=== PATIENT | female | born 1960 | race African-American/Black ===

== ENCOUNTER 2016-12-06 16:47 | Inpatient (IN) | payer OTHER ==
--- NOTE | ~2016-12-06 | CT2 ---
[facility] A Service of [facility] & [facility] RADIOLOGY TEXT RESULTS PATIENT: CRIS BRAVO LOCATION: [facility] 576-01 : [birth year] UNIT #: [id number] AGE: [address]: Lucio Villareal MD SEX: F ORDER DR: [id number] [facility] [address] [place], [place] [address] [id number] I MR#: [id number] #: [id number] NAME: CRIS BRAVO. : 1960 SEX: F STUDY DATE/TIME: 12/06/2016 17:16 UNIT: [facility] ROOM: 11934 STUDY DESCRIPTION: CT Abd and Pelv W Cont Attending Physician: Arianna Dacosta M.D. Ordering Physician: Lulu Guardado M.D. Primary Care Physician: Miranda Liao A.P.R.N. MEDICAL IMAGING REPORT This report is preliminary unless electronic signature is present EXAM CT of abdomen and pelvis with IV contrast. DATE OF EXAM 12/06/2016 HISTORY Abdomen pain for 1 month. Nausea, vomiting and diarrhea for 2 days. TECHNIQUE NOTE: This CT exam was performed with one or more of the following radiation dose reduction techniques: automatic exposure control, adjustment of mA and/or kV according to patient size, and iterative reconstruction. FINDINGS CT abdomen and pelvis was performed with IV contrast. CT ABDOMEN: Small hiatal hernia. The liver, spleen, pancreas, kidneys, and right adrenal gland are unremarkable. There is a 1.2 cm x 1.3 cm left adrenal nodule, stable compared to 03/19/2006, indicating a benign adrenal adenoma, given its long-term stability. There is borderline to mild dilatation of several small bowel loops in the mid and left abdomen measuring approximately 3 cm in diameter, which could be due to mild ileus. No transition point is identified to suggest obstruction. Cholecystectomy. Normal caliber abdominal aorta. No ascites. No adenopathy. CT PELVIS: No free fluid or inflammatory stranding. No bowel dilatation. Hysterectomy. Urinary bladder is normal. IMPRESSION 1. Borderline to mild dilatation of small bowel in the mid and left STS. [facility] A Service of [facility] & [facility] RADIOLOGY TEXT RESULTS PATIENT: CRIS BRAVO LOCATION: [facility] 576-01 : [birth year] UNIT #: [id number] AGE: [address]: Lucio Villareal MD SEX: F ORDER DR: abdomen could be localized ileus. No transition point is identified. The remainder of bowel caliber is normal. 2. Small hiatal hernia. 3. Stable left adrenal nodule compared to older CTs dating back to 03/19/2006, indicating a benign adenoma. 4. Hysterectomy and cholecystectomy. Dictated by... Aaron Singh M.D. THIS IS AN ELECTRONICALLY VERIFIED REPORT Aaron Singh M.D. at 12/06/2016 11:17 PM YARON/chi TD: 12/06/2016 21:54 JOB #: [id number] MEDICAL IMAGING REPORT Page 1 of 1 COPY
--- NOTE | ~2016-12-06 | HP ---
Unit #: [id number] #: [id number] Patient: CRIS BRAVO [id number] [address] [place], [place] [address] [id number] I MR#: [id number] NAME: CRIS BRAVO. ROOM: 83068 Age: 56 Sex: F Admission Date: 12/06/2016 : 1960 Attending Physician: Arianna Dacosta M.D. Primary Care Physician: Miranda Liao A.P.R.N. HISTORY AND PHYSICAL CHIEF COMPLAINT Upper abdominal pain. HISTORY OF PRESENT ILLNESS This pleasant 56-year-old female with chronic obstructive pulmonary disease, seizure disorder, hypertension, and multiple abdominal surgeries, is admitted for abdominal pain. The patient states she developed increasing abdominal pain over the past several months, much worse over the past 24 hours. This morning she awoke with abdominal distention, nausea, and vomiting. She did have some stool which did seem to alleviate some of her abdominal distention. She states that when she eats she notes upper abdominal distention and pain with at times nausea and vomiting. She has had a 35 pound weight loss over the past six months. She was seen by Dr. Ulloa and sent to this emergency department for further workup. A CT scan is suspicious for a localized ileus. On examination, patient does have generalized abdominal tenderness, though the abdomen is soft. She is noted to have upper abdominal distention where her discomfort is more localized. In the ER, she was given two doses of Dilaudid and Zofran. PAST MEDICAL HISTORY 1. Cardiac catheterization performed December 2015 showing normal coronary arteries and evidence of hypertensive cardiovascular disease and diastolic LV dysfunction. 2. Chronic obstructive pulmonary disease with ongoing tobacco use. 3. Hypertension. 4. Hyperlipidemia. 5. Seizure disorder. 6. Gastroesophageal reflux disease. 7. Chronic low back pain for which the patient is disabled. 8. Endometrial cancer requiring HAYES and BSO. 9. Anxiety and depression. 10. Multiple abdominal surgeries. 11. Cholecystectomy. 12. section. 13. Total abdominal hysterectomy and BSO. 14. Multiple EGDs and colonoscopies. 15. Appendectomy. 16. Ventral hernia repair and lysis of adhesions. ALLERGIES SULFA, CODEINE, AND CEFOXITIN. Unit #: [id number] #: [id number] Patient: CRIS BRAVO HOME MEDICATIONS 1. Keppra 500 mg b.i.d. 2. Naprosyn 220 mg b.i.d. p.r.n. 3. Multivitamin daily. 4. Lipitor 20 mg at bedtime. 5. Norvasc 5 mg q.a.m. 6. Neurontin 800 mg t.i.d. 7. Albuterol as needed. 8. Metoprolol 50 mg b.i.d. 9. Ativan 2 mg t.i.d. p.r.n. 10. Multivitamin daily. 11. Senna laxative. 12. Seroquel 400 mg at bedtime. 13. Omeprazole 20 mg b.i.d. 14. Flexeril 10 mg b.i.d. p.r.n. FAMILY HISTORY Coronary artery disease. SOCIAL HISTORY The patient lives with her boyfriend. She smokes about a half pack per day of tobacco and does not drink alcohol. REVIEW OF SYSTEMS Notable for weight loss, upper abdominal discomfort and distention with nausea and vomiting, hypertension, hyperlipidemia, seizures, acid reflux, chronic back pain, endometrial cancer, COPD, tobacco use, anxiety, depression, and above-mentioned surgeries. All other systems were reviewed and are negative. PHYSICAL EXAMINATION GENERAL: A pleasant 56-year-old female currently in no acute distress. VITAL SIGNS: Temperature 99.7, pulse 104, respirations 16, blood pressure 113/84, and O2 saturation is 97% on room air. HEENT: Eyes PERRLA. Extraocular muscles are intact. Pharynx is benign. Edentulous. NECK: Supple, without adenopathy or thyromegaly. CHEST: Clear. CARDIAC: Normal S1 and S2, without S3, S4, or murmur. ABDOMEN: Bowel sounds are hypoactive but present. Patient has generalized abdominal tenderness but more localized in the epigastric region where she is noted to be more distended. No rebound or guarding. No hepatosplenomegaly. She does have a ventral hernia. EXTREMITIES: Without clubbing, cyanosis, or edema. Pedal pulses are present. NEUROLOGIC: Patient is awake, alert, and oriented. Cranial nerves are intact. Equal strength throughout. DIAGNOSTIC STUDIES ADMISSION LABORATORY: Hematocrit is 37.6, white blood count is 15, and normal platelet count. SMA-12: Alkaline phosphatase 104. Urinalysis with trace leukocyte esterase. IMAGING: CT scan with borderline dilation of small bowel left and mid abdomen that may represent localized ileus. Small hiatal hernia. Stable left adrenal nodule. ASSESSMENT Unit #: [id number] #: [id number] Patient: CRIS BRAVO 1. Increasing upper abdominal pain and distention with nausea and vomiting. Although a focal ileus is noted on CT scan, I suspect symptoms are related to adhesions and possibly an early small bowel obstruction. 2. Seizure disorder. 3. Depression and anxiety. 4. Chronic obstructive pulmonary disease and ongoing tobacco use. 5. Chronic low back pain. 6. Negative cardiac catheterization in December 2015. 7. Gastroesophageal reflux disease. 8. Hypertension. 9. Multiple abdominal surgeries. Patient has required repair of ventral hernia with lysis of adhesions. 10. Weight loss secondary to above. PLANS 1. IV fluids and supportive treatment. 2. Change medications to an alternate route for now. 3. P.r.n. NG tube if patient allows. 4. SCDs for DVT prophylaxis. 5. Repeat labs in the morning. 6. Will ask [facility] to see in consultation. 1. Dictated by Elizabeth To/tk TD: 12/06/2016 21:51 JOB #: [id number] HISTORY AND PHYSICAL Page 1 of 1 X Arianna Dacosta MD HISTORY AND PHYSICAL
--- NOTE | ~2016-12-06 | CR4 ---
[facility] A Service of [facility] & [facility] RADIOLOGY TEXT RESULTS PATIENT: CRIS BRAVO LOCATION: [facility] 576-01 : [birth year] UNIT #: [id number] AGE: [address]: Lucio Villareal MD SEX: F ORDER DR: [id number] [facility] [address] [place], [place] [address] [id number] I MR#: [id number] Acc #: [id number] NAME: CRIS BRAVO. : 1960 SEX: F STUDY DATE/TIME: 12/07/2016 15:22 UNIT: [facility] ROOM: [facility] STUDY DESCRIPTION: CR Abdomen Flat Upright or Dec Attending Physician: Lucio Villareal M.D. Ordering Physician: Lucio Villareal M.D. Primary Care Physician: Miranda Liao A.P.R.N. MEDICAL IMAGING REPORT This report is preliminary unless electronic signature is present EXAM Flat and upright abdomen 12/07/2016 HISTORY NG tube placement. FINDINGS KUB is obtained. Nasoenteric tube is in place with the tip in the gastric antrum in good position. Gas pattern in the abdomen is unremarkable. CONCLUSION NG tube in appropriate position. Normal bowel gas. Dictated by... Solis Montero M.D. THIS IS AN ELECTRONICALLY VERIFIED REPORT Solis Montero M.D. at 12/08/2016 10:56 AM DESIREE/dann TD: 12/07/2016 18:44 JOB #: [id number] MEDICAL IMAGING REPORT Page 1 of 1 COPY
--- NOTE | ~2016-12-06 | CR269 ---
[facility] A Service of [facility] & [facility] RADIOLOGY TEXT RESULTS PATIENT: CRIS BRAVO LOCATION: [facility] 576-01 : [birth year] UNIT #: [id number] AGE: [address]: Lucio Villareal MD SEX: F ORDER DR: [id number] [facility] [address] [place], [place] [address] [id number] I MR#: [id number] Acc #: [id number] NAME: CRIS BRAVO. : 1960 SEX: F STUDY DATE/TIME: 12/08/2016 14:29 UNIT: [facility] ROOM: [facility] STUDY DESCRIPTION: CR Upper GI and SBFT Attending Physician: Lucio Villareal M.D. Ordering Physician: Herbert Ulloa Jr., M.D. Primary Care Physician: Miranda Liao A.P.R.N. MEDICAL IMAGING REPORT This report is preliminary unless electronic signature is present EXAM Upper GI with small bowel follow through. DATE OF EXAM 12/08/2016 HISTORY Abdominal pain for 1 month with nausea, vomiting and diarrhea. Mid-abdomen pain since 12/04/2016. CT scan of the abdomen and pelvis 12/06/2016, showed dilated small bowel possibly reflecting ileus. FINDINGS Preliminary radiograph of the abdomen demonstrates nonspecific bowel gas pattern with no evidence of bowel obstruction or free air. Nasogastric tube is coiled within the stomach with the tip in the mid gastric region. Surgical clips are seen in the upper abdomen. The patient's nasogastric tube was injected with 2 cups of thin liquid barium as per clinician request. Multiple sequential radiographs of the abdomen were obtained for a total of 2 hours. There was normal progress of barium through the small bowel. Small bowel was normal in course and caliber. No intrinsic or extrinsic mass lesions were seen involving the small bowel. The terminal ileum and the cecum were normal in appearance. 5 fluoroscopic spot film radiographs of the abdomen were obtained and 1.2 minutes of fluoroscopy time was utilized. IMPRESSION Normal upper GI series and small-bowel follow-through. Dictated by... Sha Whitney M.D. THIS IS AN ELECTRONICALLY VERIFIED REPORT [facility] A Service of [facility] & [facility] RADIOLOGY TEXT RESULTS PATIENT: CRIS BRAVO LOCATION: [facility] 576-01 : [birth year] UNIT #: [id number] AGE: [address]: Lucio Villareal MD SEX: F ORDER DR: Sha Whitney M.D. at 12/09/2016 1:13 PM IRAIS/chi TD: 12/08/2016 21:51 JOB #: [id number] MEDICAL IMAGING REPORT Page 1 of 1 COPY
[2016-12-06 15:34] LABS: BASOPHIL% 0.2 % (0-2.5); EOSINOPHIL# 0.1 X10e3 (0-0.7); EOSINOPHIL% 0.8 % (0.0-7.0); HEMATOCRIT 37.6 % (35.0-45.0); HEMOGLOBIN 12.6 gm/dL (12.0-16.0); LYMPHOCYTE# 1.9 X10e3 (1.0-3.5); LYMPHOCYTE% 12.4 % (17.0-45.0); MEAN CELL VOLUME 94.4 FL (83-96); MEAN CORPUSCULAR HEMOGLOBIN 31.7 PG (28-34); MEAN CORPUSCULAR HGB CONC 33.6 g/dL (30-36); MEAN PLATELET VOLUME 6.8 FL (6.5-11.5); MONOCYTE# 0.8 X10e3 (0-1.0); MONOCYTE% 5.1 % (3.0-12.0); NEUTROPHIL# 12.2 X10e3 (1.5-7.1); NEUTROPHIL% 81.5 % (40-75); PLATELET COUNT 345 X10e3 (140-420); RED BLOOD COUNT 3.98 X10e (3.90-5.30); RED CELL DISTRIBUTION WIDTH 14.2 % (11.0-15.5); WHITE BLOOD COUNT 14.9 X10e3 (4.0-10.5)
[2016-12-06 15:44] LABS: DIFF IND NO
[2016-12-06 15:58] LABS: ALBUMIN SERUM 4.2 g/dL (3.5-5.0); ALKALINE PHOSPHATASE 104 U/L (32-92); ALT (SGPT) 11 U/L (10-40); AST (SGOT) 16 U/L (10-42); BILIRUBIN,TOTAL 0.6 mg/dL (0.2-2.0); BLOOD UREA NITROGEN 9 mg/dL (9-23); BUN/CREATININE RATIO 12.85; CARBON DIOXIDE 27 mmol/L (22-31); CHLORIDE 102 mmol/L (100-111); CREATININE SERUM 0.7 mg/dL (0.6-1.4); GLOM FILT RATE Estimated 113.8 mL/min (>60); GLUCOSE FASTING 103 mg/dL (70-110); LIPASE 22 U/L (22-51); POTASSIUM 4.2 mmol/L (3.5-5.1); PROTEIN TOTAL SERUM 7.7 g/dL (6.0-8.3); SODIUM 138 mmol/L (135-145)
[2016-12-06 16:04] LABS: BILIRUBIN, DIRECT <0.1 mg/dL (0.0-0.2); BILIRUBIN,INDIRECT 0.5 mg/dL (0.0-0.9)
[2016-12-06 16:14] LABS: URINE SOURCE CLEAN CATCH
[2016-12-06 16:21] LABS: URINE APPEARANCE CLEAR; URINE BILIRUBIN NEG (NEG); URINE BLOOD TRACE (NEG); URINE COLOR YELLOW; URINE GLUCOSE NEG (NEG); URINE KETONE NEG (NEG); URINE LEUKOCYTE ESTERASE TRACE (NEG); URINE NITRATE NEG (NEG); URINE PROTEIN NEG (NEG); URINE SPECIFIC GRAVITY 1.012 (1.003-1.035); URINE UROBILINOGEN 0.2 MG/DL (NEG)
[2016-12-06 16:22] LABS: CULTURE INDICATED? NO; URINE BACTERIA AUWI NEG (NEGATIVE); URINE SQUAMOUS EPITHELIAL CELL OCC /[HPF]
[~2016-12-06 16:47] MED LIST: ALBUTEROL MININEB NEB; ALBUTEROL20 ml INH; AMLODIPINE BESY10 MG PO; AMLODIPINE BESYL5 MG PO; ASPERCREME76.5 GM; ASPERCREME76.5 GM TOP; ATIVAN2 M1 PO; BUTRANS1 EAC1 TD; CLARITIN10 M3 PO; CLOTRIMAZOLE; DEPAKOTE PO; DESYREL150 M1 PO; DESYREL300 MG PO; ENSURE PLUS237 ML PO; FLEXERIL PO; FLEXERIL10 MG PO; GUAIFENESIN LA600 M1 PO; HCTZ; KEPPRA500 M1 PO; LAMOTRIGINE25 M1 PO; LIPITOR20 MG PO; LOSARTAN POTASS50 MG PO; METOPROLOL TART25 MG PO; MULTI VITAMIN1 EACH PO; NAPROXEN SODIU220 M1 PO; NEURONTIN PO; NEURONTIN800 MG PO; NORVASC; OMEPRAZOLE20 M2 PO; PERCOCET 10/3251 TAB PO; PREDNISONE1 MG PO; PREMARIN PO; PRILOSEC20 M1 PO; PROPRANOLOL PO; REMERON15 MG PO; RISPERDAL2 MG PO; SENNA LAXATIVE8.6 M1 PO; SEROQUEL PO; SEROQUEL300 M1 PO; SERTRALINE HCL100 MG PO; THERA M PLUS1 UDTA1 PO; THERA-M CAPLET1 EAC1 PO; VOLTAREN 1% PO; WELLBUTRIN PO; ZOLOFT PO; ZOLOFT100 MG PO
[2016-12-07 12:26] LABS: BASOPHIL% 0.2 % (0-2.5); EOSINOPHIL# 0.2 X10e3 (0-0.7); HEMATOCRIT 35.1 % (35.0-45.0); HEMOGLOBIN 11.6 gm/dL (12.0-16.0); MEAN CELL VOLUME 94.7 FL (83-96); MEAN CORPUSCULAR HEMOGLOBIN 31.4 PG (28-34); MEAN CORPUSCULAR HGB CONC 33.1 g/dL (30-36); MONOCYTE# 0.5 X10e3 (0-1.0); MONOCYTE% 5.5 % (3.0-12.0); NEUTROPHIL# 6.3 X10e3 (1.5-7.1); NEUTROPHIL% 70.3 % (40-75); PLATELET COUNT 306 X10e3 (140-420); RED CELL DISTRIBUTION WIDTH 14.4 % (11.0-15.5)
[2016-12-07 12:31] LABS: DIFF IND NO
[2016-12-07 13:15] LABS: ALBUMIN SERUM 3.6 g/dL (3.5-5.0); BILIRUBIN,TOTAL 0.3 mg/dL (0.2-2.0); CALCIUM SERUM 8.2 mg/dL (8.4-10.2); CREATININE SERUM 0.5 mg/dL (0.6-1.4); GLOM FILT RATE Estimated 127.2 mL/min (>60); PROTEIN TOTAL SERUM 6.5 g/dL (6.0-8.3)
[2016-12-08 06:12] LABS: HEMATOCRIT 40.9 % (35.0-45.0); MEAN CELL VOLUME 93.7 FL (83-96); MEAN CORPUSCULAR HEMOGLOBIN 31.1 PG (28-34); MEAN CORPUSCULAR HGB CONC 33.1 g/dL (30-36); MEAN PLATELET VOLUME 7.4 FL (6.5-11.5); RED BLOOD COUNT 4.37 X10e (3.90-5.30); WHITE BLOOD COUNT 10.9 X10e3 (4.0-10.5)
[2016-12-08 06:16] LABS: HEMOGLOBIN 13.6 gm/dL (12.0-16.0)
[2016-12-09 05:44] LABS: BASOPHIL% 0.3 % (0-2.5); DIFF IND NO; EOSINOPHIL# 0.1 X10e3 (0-0.7); EOSINOPHIL% 1.2 % (0.0-7.0); HEMOGLOBIN 13.4 gm/dL (12.0-16.0); LYMPHOCYTE# 3.6 X10e3 (1.0-3.5); LYMPHOCYTE% 38.1 % (17.0-45.0); MEAN CELL VOLUME 93.8 FL (83-96); MEAN CORPUSCULAR HEMOGLOBIN 31.4 PG (28-34); MEAN CORPUSCULAR HGB CONC 33.5 g/dL (30-36); MEAN PLATELET VOLUME 7.4 FL (6.5-11.5); MONOCYTE# 0.7 X10e3 (0-1.0); MONOCYTE% 7.6 % (3.0-12.0); NEUTROPHIL% 52.8 % (40-75); PLATELET COUNT 318 X10e3 (140-420); RED BLOOD COUNT 4.27 X10e (3.90-5.30); RED CELL DISTRIBUTION WIDTH 13.9 % (11.0-15.5); WHITE BLOOD COUNT 9.5 X10e3 (4.0-10.5)
[2016-12-09 07:41] LABS: ALBUMIN SERUM 3.8 g/dL (3.5-5.0); ALKALINE PHOSPHATASE 99 U/L (32-92); ALT (SGPT) 13 U/L (10-40); AST (SGOT) 14 U/L (10-42); BILIRUBIN,TOTAL 0.5 mg/dL (0.2-2.0); CALCIUM SERUM 9.1 mg/dL (8.4-10.2); CARBON DIOXIDE 26 mmol/L (22-31); CHLORIDE 105 mmol/L (100-111); CREATININE SERUM 0.7 mg/dL (0.6-1.4); GLOM FILT RATE Estimated 113.8 mL/min (>60); GLUCOSE FASTING 91 mg/dL (70-110); POTASSIUM 3.6 mmol/L (3.5-5.1); PROTEIN TOTAL SERUM 7.2 g/dL (6.0-8.3); SODIUM 140 mmol/L (135-145)
[2016-12-09 08:02] LABS: BLOOD UREA NITROGEN <5 mg/dL (9-23); BUN/CREATININE RATIO 7.14
== END 2016-12-09 10:45 | disposition home or self-care (01) | DRG 390 ==
LOC: CED 16:47 → CEDOF 21:00 → C5C 22:51
PROVIDERS: Internal Medicine; Surgery
DX: K56.5 Intestinal adhesions [bands] with obstruction (postinfection) (principal); R56.9 Unspecified convulsions; K56.7 Ileus, unspecified; F17.210 Nicotine dependence, cigarettes, uncomplicated; I10 Essential (primary) hypertension; J44.9 Chronic obstructive pulmonary disease, unspecified; E78.5 Hyperlipidemia, unspecified; K21.9 Gastro-esophageal reflux disease without esophagitis; G89.29 Other chronic pain; M54.9 Dorsalgia, unspecified; F41.9 Anxiety disorder, unspecified; F32.9 Major depressive disorder, single episode, unspecified; R63.4 Abnormal weight loss; Z68.25 Body mass index [BMI] 25.0-25.9, adult; D64.9 Anemia, unspecified; Z85.89 Personal history of malignant neoplasm of other organs and systems; Z90.710 Acquired absence of both cervix and uterus; Z90.49 Acquired absence of other specified parts of digestive tract; Z82.49 Family history of ischemic heart disease and other diseases of the circulatory system; Z88.1 Allergy status to other antibiotic agents; Z88.5 Allergy status to narcotic agent; Z88.2 Allergy status to sulfonamides
CPT/HCPCS: 36415; 74020; 74177; 74245; 80048; 80053; 80076; 81003; 82150; 82947; 83690; 85025; 85027; 94640; 94760; 96374; 96375; 96376; 99285; C9113; J1170; J1953; J2060; J2270; J2405; J2550; J3490; Q9967

== ENCOUNTER 2016-12-12 23:10 | Inpatient (IN) | payer OTHER ==
--- NOTE | ~2016-12-12 | OR ---
Unit #: [id number] #: [id number] Patient: CRIS GIORDANO [id number] [place], [place] [address] [id number] I MR#: [id number] NAME: CRIS GIORDANO. ROOM: 309 Date of Procedure: 12/13/2016 Admission Date: 12/13/2016 Surgeon: Will Sheppard M.D. : 1960 Attending Physician: Nasir Barnett M.D. OPERATIVE REPORT PREOPERATIVE DIAGNOSES Nausea, vomiting, and epigastric pain. POSTOPERATIVE DIAGNOSES Gastritis and 4 cm hiatal hernia. PROCEDURE PERFORMED Esophagogastroduodenoscopy with biopsy x3. ANESTHESIA Monitored anesthesia. INDICATIONS FOR PROCEDURE Ms. Giordano is a 56-year-old female, who recently was hospitalized for nausea and vomiting and while she was here, underwent upper GI and small bowel follow-through, which was read as normal with a normal transit time. She left the hospital AMA, but came back stating she was continuing to have nausea, vomiting, and epigastric pain, but there was no evidence of hematemesis or melena. Because of persistence of her symptoms, we plan on doing an EGD. DESCRIPTION OF PROCEDURE The patient was transported from the emergency room to the endoscopy suite. After appropriate monitoring and positioning, a bite block was placed and she was sedated by the nurse kitchen steward. The endoscope was passed through the oral cavity in the esophagus. Under direct vision, we passed through the esophagus into the stomach, insufflated the stomach and noted that she had a patchy gastritis. I passed through the pylorus down the second and third portion of duodenum. Duodenum and duodenal bulb were normal. In the antrum, she had some gastritis and ZAC testing was performed. There were some very small superficial areas that look like they could have possibly been aphthous ulcers, but they were healing if they had in fact an ulcers. In retroflexing the scope above the incisura, there were no findings in the upper fundus or cardia other than a hiatal hernia. As I came back in a retrograde fashion, I measured the hernia at 4 cm with the GE junction well demarcated at 35 cm from the incisors. No esophagitis or Rivera mucosa was noted. The rest of the esophagus and larynx were normal. The patient tolerated the procedure well and transported to recovery in stable condition. The patient will be readmitted to her hospital room for ongoing evaluation and treatment. Unit #: [id number] #: [id number] Patient: CRIS GIORDANO Raman Dictated by... Elizabeth Plascencia/andreas TD: 12/14/2016 02:28 JOB #: [id number] OPERATIVE REPORT Page 1 of 1 X Will Sheppard MD PROCEDURE OPERATIVE NOTE
--- NOTE | ~2016-12-12 | CR63 ---
[facility] A Service of [facility] & [facility] RADIOLOGY TEXT RESULTS PATIENT: CRIS BRAVO LOCATION: [facility] [id number] : [birth year] UNIT #: [id number] AGE: [address]: Nasir Barnett MD SEX: F ORDER DR: [id number] [facility] [address] [place], [place] [address] [id number] I MR#: [id number] Acc #: [id number] NAME: CRIS BRAVO. : 1960 SEX: F STUDY DATE/TIME: 12/13/2016 7:48 UNIT: [facility] ROOM: 34465 STUDY DESCRIPTION: CR Chest 2 View Attending Physician: Nasir Barnett M.D. Ordering Physician: Arianna Dacosta M.D. Primary Care Physician: No Primary Care Physician MEDICAL IMAGING REPORT This report is preliminary unless electronic signature is present EXAM Two-view chest, 12/13/2016. HISTORY 56-year-old female with a 1-week history of cough and abdomen pain. Past history of uterine cancer. TECHNIQUE AP and lateral upright chest series. FINDINGS The examination shows no active disease in the chest. Shallow lung expansion with minimal basilar atelectasis. No visible pulmonary infiltrate or pleural effusion. Stable mild cardiomegaly. No significant change since 12/10/2015. IMPRESSION No active disease. Dictated by... Ariel Bliss M.D. THIS IS AN ELECTRONICALLY VERIFIED REPORT Ariel Bliss M.D. at 12/13/2016 1:32 PM CAROLYNW/donn TD: 12/13/2016 09:56 JOB #: [id number] MEDICAL IMAGING REPORT Page 1 of 1 COPY
--- NOTE | ~2016-12-12 | HP ---
Unit #: [id number] #: [id number] Patient: CRIS BRAVO [id number] [address] [place], [place] [address] [id number] MR#: [id number] NAME: CRIS BRAVO ROOM: Age: 56 Sex: F Admission Date: 12/12/2016 : 1960 Attending Physician: Jon Cates M.D. Primary Care Physician: No Primary Care Physician HISTORY AND PHYSICAL CHIEF COMPLAINT Nausea and vomiting with intractable abdominal pain. HISTORY This 56-year-old female with COPD, seizure disorder, hypertension, multiple abdominal surgeries, is readmitted for abdominal pain and nausea and vomiting. The patient was admitted by myself 12/06/2016 for increasing abdominal pain, particularly in the epigastric region with associated nausea, vomiting and weight loss. Her CT scan was abnormal at that time consistent with an ileus. Therefore, she underwent an upper GI and small bowel follow through which was negative. Was seen in consultation by surgery. However, ended up leaving AMA before an entire workup was performed. States that she was well until yesterday when she again developed generalized abdominal pain which localizes mainly to the epigastric region. This is associated with non-bloody nausea and vomiting. She is passing gas without having had a bowel movement in some days. Also notes a cough productive of yellow sputum. As I was examining the patient, the patient started vomiting quite a bit. On examination, her tenderness localizes to the epigastric region although the abdomen is soft. Repeat CT scan performed shows possible mild ileus. In the ER, she was bolused with normal saline, given Zofran, potassium run and Dilaudid. Still is experiencing quite a bit of pain. PAST MEDICAL HISTORY 1. Cardiac catheterization 12/2015 showing normal coronary arteries and evidence of hypertensive cardiovascular heart disease with diastolic LV dysfunction. 2. COPD with ongoing tobacco use. 3. Essential hypertension. 4. Hyperlipidemia. 5. Seizure disorder. 6. GERD. 7. Chronic low back pain for which the patient is disabled. 8. Endometrial cancer requiring HAYES and BSO. 9. Anxiety and depression. 10. Cholecystectomy. 11. . 12. HAYES and BSO. 13. Multiple EGDs and colonoscopies. 14. Appendectomy. 15. Ventral hernia repair and lysis of adhesions. Unit #: [id number] #: [id number] Patient: CRIS BRAVO ALLERGIES Sulfa, codeine and cefoxitin. MEDICATIONS Home medications I believe include the followin. Keppra 500 mg b.i.d. 2. Lipitor 20 mg q. h.s. 3. Norvasc 5 mg daily. 4. Neurontin 800 mg t.i.d. 5. Albuterol as needed. 6. Metoprolol 50 mg b.i.d. 7. Ativan 2 mg t.i.d. p.r.n. 8. Senna laxatives. 9. Seroquel 400 mg q. h.s. 10. Omeprazole 20 mg b.i.d. 11. Flexeril 10 mg b.i.d. p.r.n. FAMILY HISTORY CAD. SOCIAL HISTORY The patient lives with her boyfriend. Smokes a half a pack a day and does not drink alcohol. REVIEW OF SYSTEMS Notable for abdominal pain, nausea, vomiting, constipation, cough, COPD, hypertension, hyperlipidemia, seizures, GERD, chronic back pain, endometrial cancer, anxiety, depression, above mentioned surgeries and tobacco abuse. All other systems were reviewed and are negative. PHYSICAL EXAMINATION GENERAL APPEARANCE: Uncomfortable appearing 56-year-old female who is actively vomiting. VITAL SIGNS: Temperature 98, pulse 91, respirations 18, blood pressure 141/90. O2 saturation 100% on room air. HEENT: Eyes PERRLA. Extraocular muscles are intact. Pharynx is benign. NECK: Supple without adenopathy or thyromegaly. CHEST: Clear. CARDIAC: Normal S1 and S2 without S3, S4 or murmur. ABDOMEN: Bowel sounds are hyperactive. The patient is most tender in the epigastric region without rebound or guarding. No hepatosplenomegaly, tenderness or masses. EXTREMITIES: Without clubbing, cyanosis or edema. Pedal pulses are present. NEUROLOGIC: The patient is awake, alert, oriented. Cranial nerves are intact. Equal strength throughout. DIAGNOSTIC STUDIES LABORATORY: Admission labs - hematocrit is 37.9, white blood count is 16.6, normal platelet count. SMA-12 - potassium is 3.3. Lipase is normal. Urine tox screen positive for THC, opiates, and TCA. Negative for benzos. Urinalysis - 1+ leukocyte esterase without significant white or red cells. IMAGING: CT scan most consistent with mild ileus, hiatal hernia, stable Unit #: [id number] #: [id number] Patient: CRIS BRAVO left adrenal adenoma. ASSESSMENT 1. Nausea, vomiting, with upper abdominal pain of uncertain etiology: CT scan shows "mild ileus" which likely is not the cause of the patient's pain. She has been experiencing weight loss. Had a recent small bowel follow through which was negative. 2. Essential hypertension. 3. Seizure disorder. 4. Bronchitis and chronic obstructive pulmonary disease. 5. Gastroesophageal reflux disease. 6. Chronic back pain. 7. Multiple abdominal surgeries. PLANS 1. IV fluids and supportive treatment. 2. Change medications to an alternate route while NPO. 3. [facility] to see. May need EGD, etc. for further workup. 4. Doxycycline and Duo-Nebs. 5. Obtain chest x-ray. 6. SCDs for DVT prophylaxis. 7. Repeat labs this morning. Dictated by Elizabeth To/kaleigh TD: 12/13/2016 05:25 JOB #: [id number] CC: [facility] HISTORY AND PHYSICAL Page 1 of 1 X Arianna Dacosta MD HISTORY AND PHYSICAL
--- NOTE | ~2016-12-12 | CO ---
Unit #: [id number] #: [id number] Patient: CRIS GIORDANO [id number] [address] [address] [id number] I MR#: [id number] NAME: CRIS GIORDANO. ROOM: 22099 Age: 56 Sex: F Admission Date: 12/13/2016 : 1960 Attending Physician: Arianna Dacosta M.D. Primary Care Physician: No Primary Care Physician Consultation Date: 12/13/2016 CONSULTATION REPORT HISTORY AND EXAM Ms. Giordano is a 56-year-old female with a history of COPD, seizure disorder, hypertension, and multiple previous abdominal surgeries. Her last abdominal surgery was a cholecystectomy done in October of 2015. On December 06, she was admitted because of complaints of nausea and vomiting and a CT scan at that time revealed an ileus with some mild small bowel dilatation. A followup upper GI and small bowel followthrough were normal. During her hospitalization, the patient became agitated and signed out AMA. She now comes back complaining of persistent nausea and nonbloody vomiting. She said she is passing gas, but has not had stool in several days. She denies fever or chills. She admits to drug use, but denies the use of alcohol. Repeat CT scan in the ER was consistent with ileus by verbal report. PAST MEDICAL HISTORY Hypertension, diastolic left ventricular dysfunction, COPD with ongoing tobacco abuse, hyperlipidemia, seizure disorder, reflux, chronic low back pain, endometrial carcinoma status post hysterectomy and bilateral salpingo-oophorectomy, anxiety, depression, bipolar disorder, cholecystectomy, previous C section, previous EGD and colonoscopy, appendectomy, ventral hernia repair and lysis of adhesions, and past history of bipolar disorder and drug abuse to include cocaine addiction. ALLERGIES She is allergic to sulfa, codeine, and cefoxitin. MEDICATIONS Current medications at home include: 1. Keppra. 2. Lipitor. 3. Norvasc. 4. Neurontin. 5. Albuterol. 6. Metoprolol. 7. Ativan. 8. Senna. 9. SEROquel. 10. Omeprazole. 11. Flexeril. FAMILY HISTORY Heart disease. SOCIAL HISTORY Unit #: [id number] #: [id number] Patient: CRIS GIORDANO Lives with her boyfriend. Denies the use of alcohol, but she admits to smoking and using drugs. REVIEW OF SYSTEMS Denies fever, chills, and night sweats. No hematemesis, hematochezia, or melena. She has not had a stool since leaving the hospital several days ago, but is passing flatus. PHYSICAL EXAMINATION GENERAL APPEARANCE: On current examination, patient is awake, alert, oriented, and cooperative today. VITAL SIGNS: Temperature is 98, pulse 75, respirations 14, and blood pressure 139/91. HEENT: Unremarkable. CARDIAC: Regular rhythm. LUNGS: Clear. ABDOMEN: It is nondistended. It is soft without rebound or involuntary guarding. She voluntarily guards in the epigastrium and says that it is causing her discomfort. There is no hernia and her incisions are well healed. EXTREMITIES: No edema. NEUROLOGICALLY: Grossly intact. DIAGNOSTIC STUDIES LABORATORY: Comprehensive metabolic panel and lipase are normal. Hemoglobin 12.4, white count 16,600, and platelets 340,000. Tox screen positive for marijuana, opiates, and tricyclic antidepressants. IMAGING: CT scan: No obstruction. ASSESSMENT AND PLAN Patient with persistent nausea, vomiting, and epigastric pain. She has had upper GI and small bowel followthrough within the last week that were normal. I plan on doing an EGD to assess her further. I discussed the procedure with the patient. She understands and agrees to proceed. Dictated by... Will Sheppard M.D. LESLIE/maco TD: 12/13/2016 06:48 JOB #: [id number] CONSULTATION REPORT Page 1 of 1 X Will Sheppard MD CONSULTATION REPORT
--- NOTE | ~2016-12-12 | DS ---
Unit #: [id number] #: [id number] Patient: CRIS BRAVO [id number] [facility]. [place], [place] [address] [id number] I MR#: [id number] NAME: CRIS BRAVO. ROOM: 309 Age: 56 Sex: F Admission Date: 12/13/2016 : 1960 Discharge Date: 12/14/2016 Attending Physician: Nasir Barnett M.D. DISCHARGE SUMMARY ADMITTING DIAGNOSES Nausea, vomiting, and abdominal pain. DISCHARGE DIAGNOSES Nausea, vomiting, and abdominal pain. CONSULTANTS Dr. Sheppard. PROCEDURES DONE Esophagogastroduodenoscopy. FINDINGS Mild gastritis and a hiatal hernia. HISTORY OF PRESENT ILLNESS The patient is a 56-year-old lady with a past medical history of seizure disorder, hypertension, and multiple abdominal surgeries in the past with the recent being on 12/06/2016, presented to the emergency room with chief complaint of Nausea, vomiting, and abdominal pain. In the last hospitalization, she left AMA and presented back to the emergency room on 12/13/2016 with a chief complaint of nausea and vomiting. HOSPITAL COURSE She was seen by surgery, who did an EGD. Findings were mild gastritis thought to be secondary to opiate withdrawal by the surgery. She was kept on p.r.n. analgesics, p.r.n. antiemetics. She is clinically feeling better. She wants to go home. I spoke with the patient at length. I requested her to eat low residual diet. She will be discharged home in a stable condition. PHYSICAL EXAMINATION VITAL SIGNS: On day of discharge, temperature 99.2; pulse of 78; respirations 22; blood pressure 136/90. GENERAL: The patient is alert and oriented x3. Lying in the bed, in no acute distress. HEENT: Normocephalic and atraumatic. No icterus. PERRLA. Extraocular muscles are intact. NECK: Supple. No JVD. HEART: S1, S2. Regular rate and rhythm. ABDOMEN: Soft. Old surgical scars are well healed. Nontender. Bowel sounds present. Unit #: [id number] #: [id number] Patient: CRIS BRAVO EXTREMITIES: No edema. Normal pulses. DISCHARGE MEDICATIONS Include albuterol inhalation q.i.d. p.r.n.; Neurontin 800 mg t.i.d.; lamotrigine 25 mg daily; Keppra 500 mg p.o. q.12; Zoloft 100 mg daily; trazodone one tablet at bedtime, dose is unknown, we will resume her home dose; Claritin 10 mg daily; Seroquel 300 at bedtime; Risperdal 2 mg q.12; Ativan 2 mg p.o. q.8; Norvasc 5 mg in the morning; metoprolol 50 mg b.i.d.; Senokot 8.6 mg p.o. b.i.d.; Mucinex 600 mg b.i.d.; Lipitor 20 mg daily; Carafate 1 g p.o. q.i.d.; multivitamin one capsule p.o. daily; Percocet 10/325 one tab q.4 p.r.n. for pain, kindly note we are not giving any prescriptions, she will be taking her home medications; omeprazole 20 mg b.i.d.; Flexeril 10 mg p.o. b.i.d. DISCHARGE INSTRUCTIONS She is instructed to follow up with her primary care in 1 to 2 weeks. Total time spent in her care 35 minutes. Dictated by... Elizabeth Salazar TD: 12/16/2016 02:58 JOB #: [id number] DISCHARGE SUMMARY Page 1 of 1 X X DISCHARGE SUMMARY
--- NOTE | ~2016-12-12 | CT2 ---
[facility] A Service of [facility] RADIOLOGY TEXT RESULTS PATIENT: CRIS BRAVO LOCATION: C3A 309-01 : [birth year] UNIT #: [id number] AGE: [address]: Nasir Barnett MD SEX: F ORDER DR: [id number] [facility] [address] [place], [place] [address] [id number] I MR#: [id number] Acc #: [id number] NAME: CRIS BRAVO. : 1960 SEX: F STUDY DATE/TIME: 12/13/2016 01:11 UNIT: CEDOF ROOM: 68840 STUDY DESCRIPTION: CT Abd and Pelv W Cont Attending Physician: Arianna Dacosta M.D. Ordering Physician: Jon Cates M.D. MEDICAL IMAGING REPORT This report is preliminary unless electronic signature is present EXAM CT abdomen and pelvis, 12/13/2016 at 01:11 INDICATION Abdominal pain for 1-2 weeks. Constipation. Possible small bowel obstruction. Pain is currently 10 out of 10. Patient had an upper GI small bowel follow-through on 12/08/2016. TECHNIQUE Axial images were obtained through the abdomen and pelvis following oral and IV contrast administration. Multiplanar reformats were obtained. Comparison is made with 12/06/2016. This CT exam was performed with one or more of the following radiation dose reduction techniques: automatic exposure control, adjustment of mA and/or kV according to patient size, and iterative reconstruction. FINDINGS ABDOMEN: There is some mild atelectasis in the lower lobes. The exam is degraded by extensive streak artifact from dense barium in the colon from the prior upper GI and small-bowel follow-through. There is a small hiatal hernia. Gallbladder is surgically absent. The solid organs are grossly normal allowing for artifact. There is some gas-filled small bowel, but no convincing small bowel obstruction is seen. This may reflect a mild degree of ileus. There is a small left adrenal nodule which is unchanged since 01/16/2015 and is presumably a small shahla in this may reflect mild degree of ileus. There is a small left adrenal nodule which is unchanged since 01/16/2015 and is presumably a small benign adenoma. The solid organs are otherwise grossly normal. PELVIS: Detail is obscured by dense contrast in the colon. Distal small bowel grossly normal. Urinary bladder is normal. Uterus is surgically [facility]. [facility] A Service of [facility] RADIOLOGY TEXT RESULTS PATIENT: CRIS BRAVO LOCATION: C3A 309-01 : [birth year] UNIT #: [id number] AGE: [address]: Nasir Barnett MD SEX: F ORDER DR: absent. No free fluid is seen. IMPRESSION 1. The exam is degraded by dense residual barium in the colon. This causes extensive streak artifact. 2. There is some gas-filled small bowel loops suggesting a mild ileus. No convincing bowel obstruction is identified at this time. 3. Small hiatal hernia. 4. Cholecystectomy and hysterectomy. 5. Stable small left adrenal adenoma. Dictated by... Will Delaney Jr., M.D. THIS IS AN ELECTRONICALLY VERIFIED REPORT Will Delaney Jr., M.D. at 12/13/2016 10:17 PM JAGDISH/jasper TD: 12/13/2016 03:04 JOB #: [id number] MEDICAL IMAGING REPORT Page 1 of 1 COPY
[2016-12-12 19:47] LABS: BASOPHIL% 0.1 % (0-2.5); EOSINOPHIL# 0.1 X10e3 (0-0.7); EOSINOPHIL% 0.5 % (0.0-7.0); HEMATOCRIT 37.9 % (35.0-45.0); HEMOGLOBIN 12.4 gm/dL (12.0-16.0); LYMPHOCYTE# 1.7 X10e3 (1.0-3.5); LYMPHOCYTE% 10.1 % (17.0-45.0); MEAN CELL VOLUME 95.3 FL (83-96); MEAN CORPUSCULAR HEMOGLOBIN 31.2 PG (28-34); MEAN CORPUSCULAR HGB CONC 32.8 g/dL (30-36); MEAN PLATELET VOLUME 7.2 FL (6.5-11.5); MONOCYTE# 0.8 X10e3 (0-1.0); MONOCYTE% 4.8 % (3.0-12.0); NEUTROPHIL# 14.1 X10e3 (1.5-7.1); NEUTROPHIL% 84.5 % (40-75); PLATELET COUNT 340 X10e3 (140-420); RED BLOOD COUNT 3.98 X10e (3.90-5.30); WHITE BLOOD COUNT 16.6 X10e3 (4.0-10.5)
[2016-12-12 19:48] LABS: DIFF IND YES
[2016-12-12 20:01] LABS: PLATELET ESTIMATE NORMAL (NORMAL)
[2016-12-12 20:20] LABS: ALBUMIN SERUM 3.9 g/dL (3.5-5.0); ALKALINE PHOSPHATASE 89 U/L (32-92); ALT (SGPT) 11 U/L (10-40); AST (SGOT) 15 U/L (10-42); BILIRUBIN, DIRECT <0.1 mg/dL (0.0-0.2); BILIRUBIN,INDIRECT 0.1 mg/dL (0.0-0.9); BILIRUBIN,TOTAL 0.2 mg/dL (0.2-2.0); BLOOD UREA NITROGEN 9 mg/dL (9-23); BUN/CREATININE RATIO 11.25; CALCIUM SERUM 9.1 mg/dL (8.4-10.2); CARBON DIOXIDE 25 mmol/L (22-31); CHLORIDE 103 mmol/L (100-111); CREATININE SERUM 0.8 mg/dL (0.6-1.4); GLUCOSE FASTING 89 mg/dL (70-110); LIPASE 49 U/L (22-51); POTASSIUM 3.3 mmol/L (3.5-5.1); PROTEIN TOTAL SERUM 7.2 g/dL (6.0-8.3); SODIUM 138 mmol/L (135-145)
[2016-12-12 23:18] LABS: URINE SOURCE CLEAN CATCH
[2016-12-12 23:24] LABS: URINE APPEARANCE CLEAR; URINE BILIRUBIN NEG (NEG); URINE BLOOD 1+ (NEG); URINE COLOR DK YELLOW; URINE GLUCOSE NEG (NEG); URINE KETONE NEG (NEG); URINE LEUKOCYTE ESTERASE 1+ (NEG); URINE NITRATE NEG (NEG); URINE PROTEIN NEG (NEG); URINE SPECIFIC GRAVITY 1.016 (1.003-1.035); URINE UROBILINOGEN 0.2 MG/DL (NEG)
[2016-12-12 23:27] LABS: CULTURE INDICATED? YES; URINE BACTERIA AUWI NEG (NEGATIVE); URINE SQUAMOUS EPITHELIAL CELL OCC /[HPF]
[2016-12-13 03:03] LABS: AMPHETAMINE NEG (NEG); BARBITURATES NEG (NEG); BENZODIAZEPINES NEG (NEG); COCAINE NEG (NEG); MARIJUANA POS (NEG); OPIATES POS (NEG); TRICYCLIC ANTIDEPRESSANTS POS (NEG); U METHADONE NEG (NEG)
[2016-12-13 07:41] LABS: BASOPHIL% 0.3 % (0-2.5); EOSINOPHIL# 0.2 X10e3 (0-0.7); EOSINOPHIL% 1.5 % (0.0-7.0); HEMATOCRIT 35.2 % (35.0-45.0); HEMOGLOBIN 11.6 gm/dL (12.0-16.0); LYMPHOCYTE# 2.7 X10e3 (1.0-3.5); LYMPHOCYTE% 25.4 % (17.0-45.0); MEAN CELL VOLUME 94.4 FL (83-96); MEAN CORPUSCULAR HEMOGLOBIN 31.1 PG (28-34); MEAN CORPUSCULAR HGB CONC 32.9 g/dL (30-36); MEAN PLATELET VOLUME 7.3 FL (6.5-11.5); MONOCYTE# 0.8 X10e3 (0-1.0); MONOCYTE% 8.1 % (3.0-12.0); NEUTROPHIL# 6.8 X10e3 (1.5-7.1); NEUTROPHIL% 64.7 % (40-75); PLATELET COUNT 316 X10e3 (140-420); RED BLOOD COUNT 3.73 X10e (3.90-5.30); RED CELL DISTRIBUTION WIDTH 14.1 % (11.0-15.5); WHITE BLOOD COUNT 10.5 X10e3 (4.0-10.5)
[2016-12-13 07:46] LABS: DIFF IND NO
[2016-12-13 08:07] LABS: BUN/CREATININE RATIO 11.66; CALCIUM SERUM 8.5 mg/dL (8.4-10.2); CREATININE SERUM 0.6 mg/dL (0.6-1.4); GLOM FILT RATE Estimated 119.8 mL/min (>60); MAGNESIUM 1.8 mg/dL (1.6-3.0); POTASSIUM 3.6 mmol/L (3.5-5.1)
[2016-12-14 06:27] LABS: HEMATOCRIT 36.6 % (35.0-45.0); HEMOGLOBIN 12.1 gm/dL (12.0-16.0); MEAN CELL VOLUME 93.7 FL (83-96); MEAN CORPUSCULAR HEMOGLOBIN 30.9 PG (28-34); MEAN PLATELET VOLUME 7.1 FL (6.5-11.5); RED BLOOD COUNT 3.9 X10e (3.90-5.30); RED CELL DISTRIBUTION WIDTH 13.7 % (11.0-15.5); WHITE BLOOD COUNT 8.3 X10e3 (4.0-10.5)
[2016-12-14 07:09] LABS: BLOOD UREA NITROGEN <5 mg/dL (9-23); CALCIUM SERUM 8.8 mg/dL (8.4-10.2); CARBON DIOXIDE 24 mmol/L (22-31); CHLORIDE 103 mmol/L (100-111); CREATININE SERUM 0.5 mg/dL (0.6-1.4); GLOM FILT RATE Estimated 127.2 mL/min (>60); GLUCOSE FASTING 118 mg/dL (70-110); MAGNESIUM 1.8 mg/dL (1.6-3.0); PHOSPHOROUS 3.3 mg/dL (2.5-4.6); POTASSIUM 3.7 mmol/L (3.5-5.1); SODIUM 136 mmol/L (135-145)
[2016-12-14] MEDS ORDERED: CARAFATE PO (12:53)
== END 2016-12-14 13:29 | disposition home or self-care (01) | DRG 392 ==
LOC: CED 23:10 → CEDOF 12-13 05:20 → C3A PCU 12-13 15:04
PROVIDERS: Emergency Medicine; Internal Medicine; Specialist
PROC: 0DB78ZX Excision of Stomach, Pylorus, Via Natural or Artificial Opening Endoscopic, Diagnostic (ICD-10-PCS; principal; 2016-12-13 13:30)
DX: K29.70 Gastritis, unspecified, without bleeding (principal); I10 Essential (primary) hypertension; F11.23 Opioid dependence with withdrawal; R11.2 Nausea with vomiting, unspecified; R10.9 Unspecified abdominal pain; G40.909 Epilepsy, unspecified, not intractable, without status epilepticus; K44.9 Diaphragmatic hernia without obstruction or gangrene; J44.9 Chronic obstructive pulmonary disease, unspecified; K21.9 Gastro-esophageal reflux disease without esophagitis; M54.9 Dorsalgia, unspecified; G89.29 Other chronic pain; F17.210 Nicotine dependence, cigarettes, uncomplicated; E78.5 Hyperlipidemia, unspecified; Z85.89 Personal history of malignant neoplasm of other organs and systems; Z90.710 Acquired absence of both cervix and uterus; F41.9 Anxiety disorder, unspecified; F32.9 Major depressive disorder, single episode, unspecified; T40.2X5A Adverse effect of other opioids, initial encounter
CPT/HCPCS: 36415; 71020; 74177; 80048; 80076; 80307; 81003; 82150; 83690; 83735; 84100; 85025; 85027; 87077; 87086; 94640; 94760; 96365; 96375; 99284; C9113; J0360; J0500; J1170; J1953; J2060; J2250; J2405; J2765; J3490; Q9967

== ENCOUNTER → 2017-03-08 | Day surgery (SDC) | payer OTHER ==
[~2017-03-08] MED LIST changes: +CARAFATE PO
--- NOTE | ~2017-03-08 | OR ---
Unit #: [id number] #: [id number] Patient: CRIS BRAVO [id number] [address] [place], [place] [address] [id number] O MR#: [id number] NAME: CRIS BRAVO. ROOM: Date of Procedure: 03/08/2017 Admission Date: 03/08/2017 Surgeon: Scooby Shultz M.D. : 1960 Attending Physician: Scooby Shultz M.D. Primary Care Physician: Nando Payne M.D. OPERATIVE REPORT PROCEDURE PERFORMED Colonoscopy to cecum. INDICATIONS FOR PROCEDURE The patient with constipation, chronic abdominal pain, average risk for colorectal risk cancer. MEDICATIONS Monitored anesthesia. POSTOPERATIVE FINDINGS Colonoscopy to cecum. Prep was good. No polyps, masses, or colitis was seen. PLAN Repeat colonoscopy in 10 years. DESCRIPTION OF PROCEDURE The patient was explained of the procedure, risks, and benefits along with risks and benefits of anesthesia. She was brought to the endoscopy room. Propofol anesthesia was given. Rectal exam was done, which was normal. Colonoscope was lubricated, passed up the rectum, advanced under direct vision all the way to the cecum. Cecum was identified by ileocecal valve and appendiceal orifice. Prep was good. No polyps, masses, or colitis was seen. Mucosa was normal and healthy. I retroflexed in the rectum, small hemorrhoids seen. The scope was gently pulled out. She tolerated it well. Dictated by... Elizabeth Be/andreas TD: 03/08/2017 11:18 JOB #: [id number] Unit #: [id number] #: [id number] Patient: CRIS BRAVO OPERATIVE REPORT Page 1 of 1 X Scooby Shultz MD X PROCEDURE OPERATIVE NOTE
== END | disposition home or self-care (01) ==
LOC: COPS 07:02
DX: K59.00 Constipation, unspecified (principal); R10.9 Unspecified abdominal pain; G89.29 Other chronic pain; K64.9 Unspecified hemorrhoids; K21.9 Gastro-esophageal reflux disease without esophagitis; F41.9 Anxiety disorder, unspecified; F32.9 Major depressive disorder, single episode, unspecified; M19.90 Unspecified osteoarthritis, unspecified site; F17.210 Nicotine dependence, cigarettes, uncomplicated; I10 Essential (primary) hypertension; R56.9 Unspecified convulsions; E78.5 Hyperlipidemia, unspecified; J44.9 Chronic obstructive pulmonary disease, unspecified; Z98.890 Other specified postprocedural states; Z98.51 Tubal ligation status; Z90.710 Acquired absence of both cervix and uterus; Z79.1 Long term (current) use of non-steroidal anti-inflammatories (NSAID); Z79.899 Other long term (current) drug therapy; Z88.2 Allergy status to sulfonamides; Z88.5 Allergy status to narcotic agent; Z88.1 Allergy status to other antibiotic agents; Z90.49 Acquired absence of other specified parts of digestive tract

== ENCOUNTER → 2017-04-30 | Outpatient (CLI) | payer OTHER ==
--- NOTE | ~2017-04-30 | CT4 ---
[facility] A Service of [facility] RADIOLOGY TEXT RESULTS PATIENT: CRIS BRAVO LOCATION: CCAT : [birth year] UNIT #: [id number] AGE: [address]: Herbert Ulloa MD SEX: F ORDER DR: [id number] [facility] [address] [place], [place] [address] [id number] O MR#: [id number] [facility] #: [id number] NAME: CRIS BRAVO : 1960 SEX: F STUDY DATE/TIME: 04/30/2017 UNIT: CCAT ROOM: STUDY DESCRIPTION: CT Abd and Pelv Wo Cont Attending Physician: Herbert Ulloa Jr., M.D. Referring Physician: Herbert Ulloa Jr., M.D. Ordering Physician: Herbert Ulloa Jr., M.D. Primary Care Physician: Nando Payne M.D. MEDICAL IMAGING REPORT This report is preliminary unless electronic signature is present EXAM CT abdomen and pelvis without contrast, 04/30/2017, 1050 hours. HISTORY 57-year-old woman with mid abdominal pain and distension for 4 months. COMPARISON 12/13/2016 TECHNIQUE Helical noncontrasted images were obtained from the lung bases through the pubic symphysis. Sagittal and coronal reconstructions were performed. Oral contrast only was administered. Total exam DLP 573 mGy-cm. This CT exam was performed with one or more of the following radiation dose reduction techniques: automatic exposure control, adjustment of mA and/or kV according to patient size, and iterative reconstruction. FINDINGS Images through the lung bases are clear. There are no effusions. The distal esophagus is normal. Noncontrasted images through the abdomen demonstrate a normal appearance to the liver, spleen, pancreas and bile ducts. There are clips consistent with prior cholecystectomy. The right adrenal gland is normal. The left adrenal gland demonstrates lateral thickening with a small adenoma medially, unchanged. There is a cyst in the upper pole right kidney without change. There are no renal or ureteral calculi. There is atherosclerotic change of the abdominal aorta, which is normal in caliber. The stomach is contracted and poorly opacified, but does appear normal. There is oral contrast material throughout the proximal small bowel, which is normal. The distal small bowel is unopacified, but appears normal. [facility] A Service of [facility] RADIOLOGY TEXT RESULTS PATIENT: CRIS BRAVO LOCATION: [facility] : [birth year] UNIT #: [id number] AGE: [address]: Herbert Ulloa MD SEX: F ORDER DR: The appendix is surgically absent. There is moderate stool in the right colon, transverse colon with decompressed descending colon. There a few uncomplicated diverticula of the sigmoid colon. There is no bowel wall thickening. Pelvic phleboliths are present bilaterally. Lumbar spine is unremarkable. IMPRESSION 1. No acute findings in the abdomen or pelvis. 2. The patient has had prior appendectomy and cholecystectomy and hysterectomy. 4. There is uncomplicated diverticulosis of the sigmoid colon. 5. No renal or ureteral calculi. 6. Stable left adrenal adenoma and right upper pole renal cyst. Dictated by... Pooja Senior M.D. THIS IS AN ELECTRONICALLY VERIFIED REPORT Pooja Senior M.D. at 04/30/2017 5:27 PM LIZBETH/zackary TD: 04/30/2017 16:59 JOB #: [id number] MEDICAL IMAGING REPORT Page 1 of 1 COPY
[2017-04-30 14:51] LABS: POC - GFR >60.0 mL/min (>60)
== END | disposition home or self-care (01) ==
LOC: CCAT 08:05
PROVIDERS: Surgery
DX: R10.9 Unspecified abdominal pain (principal); R14.0 Abdominal distension (gaseous); D35.02 Benign neoplasm of left adrenal gland; K57.30 Diverticulosis of large intestine without perforation or abscess without bleeding; N28.1 Cyst of kidney, acquired; Z90.49 Acquired absence of other specified parts of digestive tract; Z90.710 Acquired absence of both cervix and uterus
CPT/HCPCS: 74176; 82565